=== PATIENT | male | born 1995 | race Caucasian/White ===

== ENCOUNTER 2019-07-02 09:46 | Emergency (ER) | payer BC ==
[~2019-07-02] VITALS: Ht 177.8 cm; Wt 63.5 kg
[2019-07-02 09:53] VITALS: BP_SYST 138
[2019-07-02 10:42] VITALS: BP_SYST 138
== END 2019-07-02 10:35 ==
LOC: SED 09:46
DX: Z02.89 Encounter for other administrative examinations (principal); F17.210 Nicotine dependence, cigarettes, uncomplicated
CPT/HCPCS: 99283